=== PATIENT | female | born 1935 | race Caucasian/White ===

== ENCOUNTER 2018-12-12 15:42 | Outpatient (CLI) | payer MEDICARE, OTHER ==
[~2018-12-12] VITALS: Ht 167.6 cm; Wt 49.2 kg
[~2018-12-12 15:42] MED LIST: AZULFIDINE PO; AZULFIDINE500 MG/TAB PO; CALTRATE 600 +1 TAB PO; FOLIC ACID PO; FOLIC ACID0.4 MG PO; FOLIC ACID1 MG PO; FOSAMAX PO; MULTIPLE VITAMI1 TA1 PO; SULFASALAZINE; TEGRETOL 2200 MG/TA1 PO
[2018-12-12 16:00] VITALS: BP 114/61; PULSE 93; TEMP 98.2
== END 2018-12-12 16:30 | disposition home or self-care (01) ==
LOC: EUO 15:42
DX: M81.0 Age-related osteoporosis without current pathological fracture (principal)
CPT/HCPCS: J0897

== ENCOUNTER 2019-11-14 14:48 | Outpatient (CLI) | payer MEDICARE, OTHER ==
[~2019-11-14] VITALS: Ht 167.6 cm; Wt 43.0 kg
[2019-11-14 15:34] VITALS: BP 119/67; PULSE 99; TEMP 98.4
== END 2019-11-14 15:48 | disposition home or self-care (01) ==
LOC: EUO 14:48
DX: M81.0 Age-related osteoporosis without current pathological fracture (principal)
CPT/HCPCS: J0897

== ENCOUNTER 2020-05-30 14:41 | Outpatient (CLI) | payer MEDICARE, OTHER ==
[~2020-05-30] VITALS: Ht 167.6 cm; Wt 50.0 kg
[2020-05-30 14:59] VITALS: BP 112/52; PULSE 81; TEMP 97.2
[2020-05-30] MEDS ORDERED: FOLIC ACID800 MCG PO (15:04)
== END 2020-05-30 15:34 ==
LOC: EUO 14:41
DX: M81.0 Age-related osteoporosis without current pathological fracture (principal)
CPT/HCPCS: J0897

== ENCOUNTER 2021-01-19 11:32 | Outpatient (CLI) | payer MEDICARE, OTHER ==
[~2021-01-19] VITALS: Ht 167.6 cm; Wt 45.0 kg
[2021-01-19] VITALS (7 sets, daily range): BP systolic 100–110; BP diastolic 41–60; PULSE 68–84; TEMP 97.8
[~2021-01-19 11:32] MED LIST changes: +FOLIC ACID800 MCG PO
== END 2021-01-19 14:00 ==
LOC: EUO 11:32
DX: U07.1 COVID-19 (principal)
CPT/HCPCS: Q0244

== ENCOUNTER 2021-02-04 15:39 | Outpatient (CLI) | payer MEDICARE, OTHER ==
[~2021-02-04] VITALS: Ht 167.6 cm; Wt 48.1 kg
[2021-02-04 16:06] VITALS: BP 138/76; PULSE 91; TEMP 98
== END 2021-02-04 16:07 ==
LOC: EUO 15:39
DX: M81.0 Age-related osteoporosis without current pathological fracture (principal)
CPT/HCPCS: J0897

== ENCOUNTER 2021-08-06 14:41 | Outpatient (CLI) | payer MEDICARE, OTHER | END 2021-08-06 17:20 | LOC: EUO 14:41 | DX: M81.0 Age-related osteoporosis without current pathological fracture (principal) | CPT/HCPCS: J0897 ==

== ENCOUNTER → 2021-08-21 | Outpatient (CLI) | payer MEDICARE, OTHER | LOC: COL.PUL 07:26 | DX: R06.02 Shortness of breath (principal); R05.3 Chronic cough; Z77.22 Contact with and (suspected) exposure to environmental tobacco smoke (acute) (chronic) ==

== ENCOUNTER 2022-08-19 12:48 | Outpatient (CLI) | payer MEDICARE, OTHER ==
[~2022-08-19] VITALS: Ht 167.6 cm; Wt 47.3 kg
[2022-08-19] MEDS ORDERED: STOOL SOFTENER100 M2 PO (13:09)
[2022-08-19 13:10] VITALS: BP 104/57; PULSE 91; TEMP 98.3
[2022-08-19] MEDS ORDERED: PROLIA60 MG/ML SQ (13:18)
[2022-08-23] MEDS ORDERED: B-121000 MCG PO (14:13)
[2022-08-23] MEDS ORDERED: ALLFEN400 MG PO (14:14)
== END 2022-08-19 13:45 ==
LOC: EUO 12:48
DX: M81.0 Age-related osteoporosis without current pathological fracture (principal)
CPT/HCPCS: J0897

== ENCOUNTER 2023-07-06 14:31 | Emergency (ER) | payer MEDICARE, OTHER ==
[~2023-07-06] VITALS: Ht 167.6 cm; Wt 47.3 kg
[~2023-07-06 14:31] MED LIST changes: +ALLFEN400 MG PO; +AMOXICILLIN 8751 TAB PO; +B-121000 MCG PO; +OXYGEN NASAL.CANN; +PROLIA60 MG/ML SQ; +STOOL SOFTENER100 M2 PO
[2023-07-06 16:47] LABS: BASO # 0.1 K/mm3 (0.0-0.2); BASO % 0.3 % (0.0-2.0); EOS % 0.1 % (0.0-4.0); GRAN # 12.7 K/mm3 (1.4-6.5); GRAN % 86.9 % (42.2-75.2); HEMATOCRIT 42.6 % (37.0-47.0); HEMOGLOBIN 14.2 g/dl (12.5-16.0); LYMPH # 0.7 K/mm3 (1.2-3.4); MEAN CELL VOLUME 94 fl (80.0-100.0); MEAN CORPUSCULAR HEMOGLOBIN 31 pg (27-31); MEAN CORPUSCULAR HGB CONC 33 g/dl (33.0-37.0); MEAN PLATELET VOLUME 8.9 fl (7.4-10.4); MONO # 1.1 K/mm3 (0.1-0.6); MONO % 7.3 % (1.7-9.3); PLATELET COUNT 320 K/mm3 (130-400); RED BLOOD COUNT 4.53 M/mm3 (4.10-5.30); REDCELL DISTRIBUTION WIDTH-CV 13.6 % (11.5-14.5)
[2023-07-06 17:05] LABS: ALBUMIN 3.9 g/dL (3.4-4.8); BILIRUBIN,TOTAL 0.6 mg/dL (0.2-1.2); CALCIUM 9.6 mg/dL (8.4-10.2); CREATININE, serum 0.63 mg/dL (0.57-1.11); TOTAL PROTEIN 7.5 g/dl (6.2-8.1)
[2023-07-06] MEDS ORDERED: CEFTIN500 MG PO (18:26)
[2023-07-06 18:35] VITALS: BP 124/70; PULSE 78
== END 2023-07-06 18:36 | disposition home or self-care (01) ==
LOC: COL.ER 14:31
PROVIDERS: Physician Assistant
DX: K56.41 Fecal impaction (principal); D72.829 Elevated white blood cell count, unspecified; R33.9 Retention of urine, unspecified